=== PATIENT | female | born 1950 | race African-American/Black ===

== ENCOUNTER 2022-05-06 12:51 | Inpatient (IN) | payer OTHER ==
[~2022-05-06] VITALS: Ht 172.7 cm; Wt 75.7 kg
[2022-05-06] VITALS (19 sets, daily range): BP systolic 143–180; BP diastolic 92–125
--- NOTE | 2022-05-06 12:51 | NUR ---
RECEIVED PT 71 YRS Fpt came by maricarmen FOR sob and resprator distres HX lung transplan 2016
--- NOTE | 2022-05-06 13:00 | NUR ---
PT ON BIBA SITING IPAP 15 E PAP 5 RATE 16 FIO2 100 % PT wih
[2022-05-06] MEDS ORDERED: FUROSEMIDE 40 MG/4 ML VIAL IV ONE ×2 (13:30→15:00)
[2022-05-06] MEDS ORDERED: NTG 50 MG/D5W250 ML BOTTL 250 ML IV ONE (13:30)
--- NOTE | 2022-05-06 13:32 | NUR ---
CALLED [facility] [phone]
[2022-05-06] MEDS ORDERED: FUROSEMIDE 40 MG/4 ML VIAL ONE ×2 (13:35→14:22)
[2022-05-06 13:45] LABS: CALCIUM, SERUM 8.9 mg/dL (8.5-10.1); CARBON DIOXIDE 27 mmol/L (21-32); CHLORIDE 100 mmol/L (98-107); CREATININE 2.2 mg/dL (0.6-1.3); GLUCOSE 279 mg/dL (74-106); POTASSIUM 3.9 mmol/L (3.5-5.1); SODIUM SERUM 137 mmol/L (136-145); UREA NITROGEN, BLOOD 47 mg/dL (7-18)
[2022-05-06 13:58] LABS: ALANINE AMINOTRANSFERASE 25 U/L (12-78); ALBUMIN 3.2 g/dL (3.4-5.0); ALKALINE PHOSPHATASE 88 U/L (46-116); ASPARTATE AMINOTRANSFERASE 35 U/L (15-37); BILIRUBIN,DIRECT 0.1 mg/dL (0.0-0.2); BILIRUBIN,TOTAL 0.2 mg/dL (0.2-1.0); TOTAL PROTEIN, SERUM 7.4 g/dL (6.4-8.2)
--- NOTE | 2022-05-06 13:58 | NUR ---
TE AT BED SIDE TY ARTEAGA [phone]
[2022-05-06 14:00] LABS: ABG BASE EXCESS -4.5 mmol/L; ABG PCO2 53.1 mmHg (35.0-45.0); ABG PH 7.252 (7.350-7.450); ABG PO2 410.7 mmHg (75.0-100.0); COHb 0.3 % (0.5-1.5); MetHb 0.6 % (0.0-1.5); O2Hb 98.7 % (94.0-97.0); SITE, ABG Right Radial; VENT MODE, BG BIPAP 15/5 16 100%
[2022-05-06 14:06] LABS: BASOPHILS % (AUTO) 0.5 % (0.0-2.0); EOSINOPHILS % (AUTO) 1.1 % (0.0-6.0); HEMATOCRIT 33 % (33-45); LYMPHOCYTES # (AUTO) 1.7 K/uL (0.8-4.8); LYMPHOCYTES % (AUTO) 20.5 % (20.0-44.0); MEAN CORPUSCULAR HGB CONC 31 g/dl (31.0-36.0); MEAN CORPUSCULAR VOLUME 90 fL (82-100); MONOCYTES # (AUTO) 0.4 K/uL (0.1-1.30); MONOCYTES % (AUTO) 4.3 % (2.0-12.0); NEUTROPHILS # (AUTO) 6.2 K/uL (1.8-8.9); NEUTROPHILS % (AUTO) 73.6 % (43.0-81.0); PLATELET COUNT (AUTO) 410 K/uL (150-450); RED BLOOD CELL COUNT(AUTO) 3.61 MIL/uL (4.0-5.2); WHITE BLOOD COUNT (AUTO) 8.4 K/uL (4.3-11.0)
--- NOTE | 2022-05-06 14:06 | NUR ---
CALLED [facility] TO BE NOTIFIED OF WHO GAVE AUTHORIZATION FOR THE PT TO STAY DR. KAY AUTH NUMBER [id number]
--- NOTE | 2022-05-06 14:09 | NUR ---
NOTIFIED ADMITTING OF AUTH NUMBER GIVEN BY [facility]
--- NOTE | 2022-05-06 14:24 | NUR ---
ALANNA CAPPS AND UA SENT TO LAB
--- NOTE | 2022-05-06 14:30 | NUR ---
[facility] CARDIO GRAM DONE AT [facility] SIDE AND CARDIOLOGY SEE PT AT BED SIDE
[2022-05-06] MEDS ORDERED: PANT40TA49 PO (14:32)
[2022-05-06] MEDS ORDERED: SIRO0.5T PO (14:32)
[2022-05-06] MEDS ORDERED: BISO5TAB20 PO (14:32)
[2022-05-06] MEDS ORDERED: VALG450T4 PO (14:32)
[2022-05-06] MEDS ORDERED: FURO20TA4 PO (14:32)
[2022-05-06] MEDS ORDERED: APIX2.5T PO (14:32)
[2022-05-06] MEDS ORDERED: MYCO250C8 PO (14:32)
[2022-05-06] MEDS ORDERED: PRAV40TA3 PO (14:32)
[2022-05-06] MEDS ORDERED: PRED5TAB PO (14:32)
[2022-05-06] MEDS ORDERED: TACR0.5C4 PO (14:32)
[2022-05-06] MEDS ORDERED: FAMO20TA8 PO (14:32)
[2022-05-06] MEDS ORDERED: LOSA25TA27 PO (14:32)
[2022-05-06] MEDS ORDERED: DEXAMETHASONE SOD PHOSPHATE 6 MG in IV D5W 50 ML IV SCH (15:00)
[2022-05-06] MEDS ORDERED: ASPIRIN 81 MG TAB.CHEW PO ONE (15:00)
--- NOTE | 2022-05-06 15:15 | NUR ---
LASIX TOTALE 40 mg ivp pt voding 800 ml cleare yellow color
[2022-05-06] MEDS ORDERED: ASPIRIN 325 MG TABLET ONE (15:32)
--- NOTE | 2022-05-06 15:37 | NUR ---
TITRATE up NIG DRIP TO 20MCG/MIN CONTENUE AND CLOSLY MONITER BP
[2022-05-06] MEDS ORDERED: FAMOTIDINE (20 MG) 20 MG TABLET PO SCH (17:00)
[2022-05-06] MEDS ORDERED: NTG 50 MG/D5W250 ML BOTTL 25 ML IV PRN (17:00)
[2022-05-06] MEDS ORDERED: DEXAMETHASONE SOD PHOSPHATE 10 MG/ML VIAL IV SCH (17:00)
[2022-05-06] MEDS ORDERED: NITROGLYCERIN 0.4 MG/TAB BOTTLE SL PRN (17:00)
[2022-05-06] MEDS ORDERED: LEVOFLOXACIN 500 MG /D5W 100ML 500 MG in PREMIX 1 EA IV SCH (17:00)
[2022-05-06] MEDS ORDERED: HEPARIN SODIUM, PORCINE 5000 UNITS/1 ML VIAL SQ SCH (17:00)
--- NOTE | 2022-05-06 18:15 | NUR ---
HAND OFF PRIMO RN ROOM 254 PT FULLY AWAKE AND ALERT VODIDING FRLELY TOTAL 1200ML/ CLEAR YELLOW COLOR
[2022-05-06] MEDS: DEXAMETHASONE SOD PHOSPHATE 10 MG/ML VIAL IV SCH (18:31)
[2022-05-06] MEDS: LEVOFLOXACIN 500 MG /D5W 100ML 100 ML IV SCH (18:32)
--- NOTE | 2022-05-06 18:49 | NUR ---
PT TRANSFERRED TO ICU WITH ACLS PROTOCOL IN PLACE
--- NOTE | 2022-05-06 19:15 | NUR ---
RN NOTE RECEIVED PATIENT IN BED, AO X 4, ON SEMI RANGEL'S, SATURATION AT 100% ON BIPAP 15/5 AT 50% FIO2, SR ON THE MONITOR, HR IS 83.IV LINE AT R HAND 20G PATENT AND FLUSHING WELL, NO S/S OF INFECTION OR INFILTRATION, WITH LEVAQUIN INFUSING AT 100 ML/HR, AND NITROGLYCERIN AT 25 MCG/MIN. PATIENT ON PUREWICK PER PATIENT REQUEST, DRAINING TO A CLEAR, YELLOW OUTPUT. SAFETY MEASURES IN PLACE, BED IS LOCKED AND AT LOWEST POSITION, CALL LIGHT WITHIN REACH OF PATIENT. WILL CONTINUE TO MONITOR AND REASSESS.
--- NOTE | 2022-05-06 19:29 | NUR ---
PT ARRIVED IN ICU AT 1846 FROM ER VIA GURNEY. PT ALERT OX3, COOPERATIVE. PT SETTLED IN ROOM, MONITOR APPLIED. REPORT GIVEN TO NIURKA FOR CONTINUATION OF CARE.
[2022-05-06] MEDS: TACROLIMUS ANHYDROUS 0.5 MG CAPSULE PO SCH (19:55)
[2022-05-06] MEDS: FUROSEMIDE 40 MG/4 ML VIAL IV SCH (19:55)
[2022-05-06] MEDS: MYCOPHENOLATE MOFETIL 250 MG CAPSULE PO SCH (19:56)
[2022-05-06] MEDS: APIXABAN 2.5 MG TABLET PO SCH (19:58)
--- NOTE | 2022-05-06 20:30 | NUR ---
RN NOTE PER PATIENT AND PT'S FAMILY, CURRENT PRESCRIPTION FOR SIROLIMUS IS 1MG DAILY. PHARMACY MADE AWARE
--- NOTE | 2022-05-06 21:45 | NUR ---
RN NOTE DR GUNN AT BEDSIDE FOR MIDLINE INSERTION, INSERTED AT KEN 18G.
[2022-05-06] MEDS ORDERED: ACETAMINOPHEN 325 MG TABLET PO PRN (22:30)
--- NOTE | 2022-05-06 22:30 | NUR ---
RN NOTE PATIENT C/O HEADACHE, DR GUNN AT BEDSIDE. ORDER RECEIVED FOR TYLENOL 650 MG Q6H PRN.
[2022-05-06] MEDS ORDERED: hydrALAZINE HCL IV 20 MG VIAL IV PRN (23:30)
--- NOTE | 2022-05-06 23:41 | NUR ---
RN NOTE VERIFIED WITH DR GUNN IF NITROGLYCERIN IS TO HELP WITH DIURESIS OR FOR BP CONTROL, AND THE LIMITS TO WHICH SBP SHOULD BE MAINTAINED AT ORDER DOES NOT SHOW PROTOCOL. HE STATED MAY STOP NITRO. BARBERING TEACHER ED AWARE
--- NOTE | 2022-05-06 23:47 | NUR ---
RN NOTE CRITICAL LAB VALUE-TROPONIN 272, READ BACK DONE WITH JASPER. DR GUNN WAS NOTIFIED WITH NO NEW ORDERS.
[2022-05-07] VITALS (37 sets, daily range): BP systolic 113–180; BP diastolic 64–117
[2022-05-07 06:12] LABS: BASOPHILS % (AUTO) 0.7 % (0.0-2.0); HEMATOCRIT 28 % (33-45); HEMOGLOBIN 8.9 g/dL (11.5-14.8); LYMPHOCYTES # (AUTO) 0.2 K/uL (0.8-4.8); LYMPHOCYTES % (AUTO) 2.8 % (20.0-44.0); MEAN CORPUSCULAR HGB CONC 32 g/dl (31.0-36.0); MEAN CORPUSCULAR VOLUME 88 fL (82-100); MONOCYTES % (AUTO) 0.7 % (2.0-12.0); NEUTROPHILS # (AUTO) 6.5 K/uL (1.8-8.9); NEUTROPHILS % (AUTO) 95.8 % (43.0-81.0); PLATELET COUNT (AUTO) 324 K/uL (150-450); RED BLOOD CELL COUNT(AUTO) 3.13 MIL/uL (4.0-5.2); WHITE BLOOD COUNT (AUTO) 6.8 K/uL (4.3-11.0)
[2022-05-07 06:39] LABS: ALBUMIN 2.7 g/dL (3.4-5.0); BILIRUBIN,TOTAL 0.2 mg/dL (0.2-1.0); CALCIUM, SERUM 8.6 mg/dL (8.5-10.1); CREATININE 2.3 mg/dL (0.6-1.3); MAGNESIUM 2.2 mg/dL (1.8-2.4); PHOSPHORUS 5.1 mg/dL (2.5-4.9); POTASSIUM 4.8 mmol/L (3.5-5.1); TOTAL PROTEIN, SERUM 6.2 g/dL (6.4-8.2)
[2022-05-07 06:40] LABS: THYROID STIMULATING HORMONE 1.539 uIU/mL (0.358-3.74)
--- NOTE | 2022-05-07 07:13 | NUR ---
RN NOTE Patient AO x3-4, in no acute distress, tolerating BIPAP at 15/5, rate of 16 and 40% FIO2, saturation at 99-100%. Nitroglycerin drip was discontinued per order from Dr Winter. Per Cardio, patient may need inotropic therapy if no response from diuretics, and may need intubation if no improvement with respiratory status. Patient to continue with BIPAP, empiric with Levaquin, and steroids. Patient also will continue with immunosuppresants, and anticoagulants. Patient needs minimum assistance with ADL's and is ambulatory at baseline. Troponin elevated at 272 and is tredning down, now at 206. The assessment findings obtained from all disciplines have been integrated into the individualized plan of care for this patient. In relation to the patient's condition, needs, strengths, and limitations, and per professional judgement, the plan of care remains appropriate. Report given to Antoinette for continuation of care.
--- NOTE | 2022-05-07 07:30 | NUR ---
OPENING NOTE: REPORT RECEIVED FROM NIURKA BELCHER. LABS AND ORDERS REVIEWED DURING REPORT. PER REPORT NITRO GTT WAS DC'D OVERNIGHT. PT IS ON BIPAP 15/5 40% AT THIS TIME. TROPONINS TRENDING DOWN 206 FROM 272 LAST NIGHT. PURE WIK IS BEING USED TO HELP KEEP PATIENT CLEAN AND HELP WITH ACCURATE I/O'S. HOME MEDICATIONS HAVE BEEN PROCESSED BY PHARMACY AND ARE AVAILABLE TO GIVE TO PATIENT ORDERED. MIDLINE IV WAS INSERTED OVERNIGHT PER MD ORDERS. PT CHECKED ON HOURLY AND PRN BY NURSING STAFF.
[2022-05-07] MEDS: MYCOPHENOLATE MOFETIL 250 MG CAPSULE PO SCH ×2 (08:27→17:50)
[2022-05-07] MEDS: TACROLIMUS ANHYDROUS 0.5 MG CAPSULE PO SCH ×2 (08:27→17:52)
[2022-05-07] MEDS: ATORVASTATIN 10 MG TABLET PO SCH ×2 (08:28→09:00)
[2022-05-07] MEDS: DEXAMETHASONE SOD PHOSPHATE 10 MG/ML VIAL IV SCH (08:28)
[2022-05-07] MEDS: FUROSEMIDE 40 MG/4 ML VIAL IV SCH ×3 (08:28→17:50)
[2022-05-07] MEDS: APIXABAN 2.5 MG TABLET PO SCH ×2 (08:30→17:52)
[2022-05-07] MEDS ORDERED: VALGANCICLOVIR HYDROCHLORIDE 450 MG PO SCH (09:00)
[2022-05-07] MEDS ORDERED: VALGANCICLOVIR 450 MG PO SCH (09:00)
[2022-05-07] MEDS ORDERED: predniSONE 5 MG TABLET PO SCH (09:00)
[2022-05-07] MEDS ORDERED: PANTOPRAZOLE 40 MG TABLET.DR PO SCH (09:00)
[2022-05-07] MEDS ORDERED: ATENOLOL 50 MG TABLET PO SCH (09:00)
[2022-05-07] MEDS ORDERED: LOSARTAN POTASSIUM 25 MG TABLET PO SCH (09:00)
[2022-05-07] MEDS ORDERED: SIROLIMUS 1 MG PO SCH ×2 (09:00)
[2022-05-07 09:21] LABS: ABG BASE EXCESS -2.4 mmol/L; ABG OXYGEN SATURATION 99.4 % (92.0-98.5); ABG PCO2 35.2 mmHg (35.0-45.0); ABG PO2 242.9 mmHg (75.0-100.0); AaDO2 434.9 mmHg; COHb 0.3 % (0.5-1.5); MetHb 0.1 % (0.0-1.5); SITE, ABG Right Radial; VENT MODE, BG 15L NRB
[2022-05-07 09:29] LABS: IRON, SERUM 37 ug/dl (50-175); TOTAL IRON BINDING CAPACITY 261 ug/dl (250-450)
[2022-05-07] MEDS ORDERED: ATORVASTATIN 10 MG TABLET PO SCH ×2 (09:30→22:00)
[2022-05-07] MEDS ORDERED: hydrALAZINE HCL IV 20 MG VIAL IV PRN (09:30)
[2022-05-07 09:42] LABS: CHOLESTEROL 332 mg/dL (<200); FERRITIN 178 ng/mL (8-388); HDL CHOLESTEROL 78 mg/dL (40-60); LDL 210 mg/dL (0-99); TRIGLYCERIDES 126 mg/dL (30-150)
[2022-05-07] MEDS: hydrALAZINE HCL 50 MG TABLET PO SCH ×3 (10:35→17:52)
[2022-05-07] MEDS: NITROGLYCERIN 30 GM TUBE TP SCH ×2 (10:36→21:00)
[2022-05-07] MEDS: LEVOFLOXACIN 500 MG /D5W 100ML 100 ML IV SCH (16:32)
--- NOTE | 2022-05-07 18:45 | NUR ---
END OF SHIFT NOTE: PT DOING MUCH BETTER THAN THIS AM. PT ON 5L NASAL CANNULA AT THIS TIME. CONTINUES TO BE ALERT OX3. EATING WITHOUT DIFFICULTY. ALDANA MANAGER [employer]EL CALLED AROUND 1830 TO GET INFORMATION AND STATED SHE WILL WORK ON GETTING PATIENT A BED. PT CHECKED ON HOURLY AND PRN BY NURSING STAFF.
--- NOTE | 2022-05-07 19:20 | NUR ---
ICU/SAMPLE CUTTER RECIEVED REPORT FROM DAY RN. PT IS SITTING WITH FAMILY ON BED. DENIES PAIN. CALL LIGHT WITHIN REACH. DENIES PAIN
[2022-05-07 20:29] LABS: BILIRUBIN,URINE NEGATIVE (NEGATIVE); COLOR,URINE YELLOW (YELLOW); LEUKOCYTE ESTERASE ,URINE NEGATIVE (NEGATIVE); NITRITE, URINE NEGATIVE (NEGATIVE); PH,URINE 5.5 (5.0-8.0); PROTEIN,URINE 1+ mg/dl (NEGATIVE); UGLUCOSE NEGATIVE (NEGATIVE); UROBILINOGEN,URINE 0.2 EU/dL (0.2)
--- NOTE | 2022-05-07 20:35 | NUR ---
ICU/[facility]EL[facility] [place] CALLED SAID THAT THEY ARE SENDING TRANSPORT TO DEVELOPER ANALYST 254 @2184. PT IS TO GO TO [facility]. ACCEPTING MD WAS JESS SMITH. SRIDHAR ALDANA REP. XCAN BE REACHED AT [phone]. LIO WORK WAS COLLECTED.
[2022-05-07 20:45] LABS: BACTERIA,URINE RARE /HPF (None Seen); MUCUS,URINE Few /LPF (None Seen)
--- NOTE | 2022-05-07 21:30 | NUR ---
ICU/WASHING MACHINE INSTALLER REPORT WAS CALLED TO NAHUM BELCHER AT [facility],
--- NOTE | 2022-05-07 23:00 | NUR ---
ICU/INK MAKER DISCHARGE PAPER WORK WAS COMPLETED AND HOUSE SUP. IS PRINTING THIS UP.
--- NOTE | 2022-05-07 23:42 | NUR ---
ICU/CONTROL TECHNICIAN NAHUM ALDANA WAS NOTIFED THAT PT IS LEAVING THE UNIT WITH TRANSPORT AT THIS TIME
--- NOTE | 2022-05-07 23:45 | NUR ---
ICU/BELT MACHINE OPERATOR PT IS OFF UNIT WITH PAPER WORK, ACLS TRANSPORT TEAM
[2022-05-08] MEDS ORDERED: FAMOTIDINE (20 MG) 20 MG TABLET PO SCH (09:00)
== END 2022-05-07 23:45 | disposition short-term general hospital (02) | DRG 280 ==
LOC: ER 12:55 → ICU 17:54
PROVIDERS: ADMIT Registered Nurse; ATTEND Nurse Practitioner Family
PROC: 05H633Z Insertion of Infusion Device into Left Subclavian Vein, Percutaneous Approach (ICD-10-PCS; principal; 2022-05-06)
PROC: B547ZZA Ultrasonography of Left Subclavian Vein, Guidance (ICD-10-PCS; 2022-05-06)
PROC: 5A09357 Assistance with Respiratory Ventilation, Less than 24 Consecutive Hours, Continuous Positive Airway Pressure (ICD-10-PCS; 2022-05-06)
DX: I13.0 Hypertensive heart and chronic kidney disease with heart failure and stage 1 through stage 4 chronic kidney disease, or unspecified chronic kidney disease (principal); I21.A1 Myocardial infarction type 2; I50.23 Acute on chronic systolic (congestive) heart failure; J96.01 Acute respiratory failure with hypoxia; J15.9 Unspecified bacterial pneumonia; J96.02 Acute respiratory failure with hypercapnia; Z94.2 Lung transplant status; N17.9 Acute kidney failure, unspecified; I42.9 Cardiomyopathy, unspecified; I16.0 Hypertensive urgency; I34.0 Nonrheumatic mitral (valve) insufficiency; I48.0 Paroxysmal atrial fibrillation; Z79.01 Long term (current) use of anticoagulants; I50.9 Heart failure, unspecified; N18.9 Chronic kidney disease, unspecified; Z79.60 Long term (current) use of unspecified immunomodulators and immunosuppressants; Z20.822 Contact with and (suspected) exposure to COVID-19
CPT/HCPCS: 36410; 36415; 36600; 71045-TC; 80048-TC; 80053-TC; 80061-TC; 80076-TC; 81001; 82570-TC; 82728-TC; 82803-TC; 83540-TC; 83605-TC; 83735-TC; 83880; 84100-TC; 84300-TC; 84443-TC; 84484-TC; 85025-TC; 85730-TC; 87040-TC; 87081-TC; 87086-TC; 93307-TC; 94760-TC; 94799-TC; A6253; C9803; G0378; J1100; J1940; J1956; J3490; J7050; J7507; J7512; J7517